=== PATIENT | male | born 1965 | race Caucasian/White ===

== ENCOUNTER → 2024-04-23 | Outpatient (CLI) | payer BC ==
[2024-04-23 14:41] VITALS: BP 157/93; PULSE 78; RESP 16; TEMP 98.3
--- NOTE | 2024-04-23 16:34 | P.SLEEP ---
History of Present Illness H&P Date: 04/23/24 This is a 58-year-old male patient referred to me for sleep apnea evaluation. The patient has very loud snoring. He is having difficulty sleeping next to his because of his loud snorer. He also prefers to watch television and uses it as a background noise to calm things down and promote sleep. His goes to bed early at around 9 PM. As such, he is currently sleeping in a separate bedroom. He feels that his sleep quality is poor. He goes to bed around 11 PM and gets out of bed at around 6 AM in the morning. Does not utilize an alarm. He maintains the same sleep schedule on weekends. He is averaging around 6 hours of sleep. He feels slightly sleepy during the day and his [place] score is at 9. He works for a [employer] and he drives back and forth between [place] and [place]. Does not fall asleep while driving. No history of any motor vehicle accidents because of feeling drowsy or sleepy. No history of smoking. He drinks beer occasionally more so on the weekends. His last alcoholic beverage that he consumes is around 9 PM. No history of head trauma. No history of substance abuse. He chews tobacco. His weight has remained stable over the years. No recent weight gain or weight loss. No issues with nocturia. Denies waking up choking or gasping for air. No restlessness in lower extremities. No nocturnal seizures. No nocturnal heartburn chest pain or palpitations. No sleepwalking or sleep talking. No difficulties with concentration and memory. His comorbid conditions include hypertension and hyperlipidemia. Review of Systems All systems: negative (14 point review of system was done. Of significance of the things mentioned above in the history of present illness.) Past Medical History Past Medical History: Hyperlipidemia, Hypertension History of Any Multi-Drug Resistant Organisms: None Reported Past Surgical History: Hernia Repair Past Anesthesia/Blood Transfusion Reactions: No Reported Reaction Past Psychological History: No Psychological Hx Reported Smoking Status: Former smoker Past Alcohol Use History: Occasional Past Drug Use History: None Reported Medications and Allergies Home Medications Medication Instructions Recorded Confirmed Type Amoxicillin 875 mg PO Q12HR 02/23/16 02/23/16 History Ibuprofen [Motrin] 400 - 600 mg PO Q6HR PRN 02/23/16 02/23/16 History Levofloxacin [Levaquin] 500 mg PO DAILY #10 tab 02/23/16 Rx Metoprolol Succinate (ER) [Toprol 50 mg PO DAILY 02/23/16 04/23/24 History XL] Quinapril HCl [Accupril] 40 mg PO DAILY 02/23/16 02/23/16 History Simvastatin [Zocor] 20 mg PO DAILY 02/23/16 04/23/24 History predniSONE [Deltasone] 20 mg PO BID #10 tab 02/23/16 Rx amLODIPine [Norvasc] 5 mg PO DAILY 04/23/24 04/23/24 History Allergies Allergy/AdvReac Type Severity Reaction Status Date / Time No Known Allergies Allergy Verified 02/23/16 11:18 Physical Exam Vitals: Vital Signs Temp Pulse Resp BP Pulse Ox 04/23/24 14:39 98.3 F 78 16 157/93 97 Intake and Output 04/23/24 04/23/24 04/23/24 06:59 14:59 22:59 Other: Weight 104.326 kg The patient appeared well nourished and normally developed. Vital signs as documented. Head exam is unremarkable. No scleral icterus or corneal arcus noted. Neck is without jugular venous distension, thyromegaly, or carotid bruits. The patient is a Mallampati class IV with significant crowding of the posterior pharynx. Carotid upstrokes are brisk bilaterally. Lungs are clear to auscultation and percussion. Cardiac exam reveals the PMI to be normally sized and situated. Rhythm is regular. First and second heart sounds normal. No murmurs, rubs or gallops. Abdominal exam reveals normal bowel sounds, no masses, no organomegaly and no aortic enlargement. Extremities are nonedematous and both femoral and pedal pulses are normal. Examination of the skin revealed no evidence of significant rashes, suspicious appearing nevi or other concerning lesions. Neurologically, the patient is awake and alert and the patient does not have any focal neurological deficit. Cranial nerves are essentially intact. Assessment and Plan Plan: Loud snoring with a poor sleep quality and daytime fatigue with limited sleepiness and [place] score of 9, rule out underlying obstructive sleep apnea. The patient is a Mallampati class IV. Obesity with a BMI of 34.9 Hypertension Hyperlipidemia Plan Encourage weight loss and avoid alcohol drinking at least 3 hours prior to going to bed. Maintain regular sleep schedule. Extend sleep hours and discussed with the patient principles of good sleep hygiene measures. Will proceed with screening for screening polysomnography looking for underlying sleep breathing disorder and treat the patient accordingly. Sleep Note - Sleep Data ESS Total: 9 - Sleep Note Sleep Note: Temperature: 98.3 F Pulse Rate: 78 Respiratory Rate: 16 Blood Pressure: 157/93 SpO2: 97 Height: 5 ft 8 in Weight: 104.326 kg BMI: Neck Circumference: 18.5
== END ==
LOC: 3 N SLEEP 14:09
PROVIDERS: ATTEND Internal Medicine Critical Care Medicine
DX: R06.83 Snoring (principal); R53.83 Other fatigue; G47.10 Hypersomnia, unspecified; E66.9 Obesity, unspecified; I10 Essential (primary) hypertension; E78.5 Hyperlipidemia, unspecified; Z68.34 Body mass index [BMI] 34.0-34.9, adult; Z79.899 Other long term (current) drug therapy; Z87.891 Personal history of nicotine dependence
CPT/HCPCS: 99211

== ENCOUNTER 2024-05-26 19:40 | Outpatient (CLI) | payer BC ==
--- NOTE | 2024-06-09 23:56 | P.PCN ---
Date of Procedure: 05/26/24 Operative Findings: Polysomnography report Date of service is 05/26/2024 Present history This is a 58-year-old male patient referred to me for sleep apnea evaluation. The patient has very loud snoring. He is having difficulty sleeping next to his because of his loud snorer. He also prefers to watch television and uses it as a background noise to calm things down and promote sleep. His goes to bed early at around 9 PM. As such, he is currently sleeping in a separate bedroom. He feels that his sleep quality is poor. He goes to bed around 11 PM and gets out of bed at around 6 AM in the morning. Does not utilize an alarm. He maintains the same sleep schedule on weekends. He is averaging around 6 hours of sleep. He feels slightly sleepy during the day and his [place] score is at 9. He works for a [employer] and he drives back and forth between [place] and [place]. Does not fall asleep while driving. No history of any motor vehicle accidents because of feeling drowsy or sleepy. No history of smoking. He drinks beer occasionally more so on the weekends. His last alcoholic beverage that he consumes is around 9 PM. No history of head trauma. No history of substance abuse. He chews tobacco. His weight has remained stable over the years. No recent weight gain or weight loss. No issues with nocturia. Denies waking up choking or gasping for air. No restlessness in lower extremities. No nocturnal seizures. No nocturnal heartburn chest pain or palpitations. No sleepwalking or sleep talking. No difficulties with concentration and memory. His comorbid conditions include hypertension and hyperlipidemia. Physical findings The patient's weight is 230 pounds with a BMI of 35 Technical description The patient was studied using a standard complex polysomnography protocol that included recording of the Lead II EKG, Central, occipital and frontal EEG, right and left outer canthus EOG, submental EMG, right and left anterior tibialis EMG, respiratory airflow by thermocouple and or pressure/flow transducer, respiratory efforts by abdominal and thoracic PVDF belts, oxygen saturation by cable oximetry. Position by observation synchronized the PSG. Equipment used: [employer]. Sleep architecture Total recording duration was 376 minutes and the total sleep time was 336.5 minutes and the overall sleep efficiency was 89.5%. The patient's sleep latency was 13.5 minutes. The patient's latency to REM sleep was 80.5 minutes. The sleep architecture was catheterized by 18.6% stage I, 59.3% stage II, 0% stage III, 22.1% REM sleep. The wake after sleep onset time was 25.5 minutes. The total arousal index was 11.9/h. Respiratory analysis The sleep study showed a total of 136 obstructive events of which 2 were obstructive apneas, 0 mixed apneas and 134 obstructive hypopneas and the resulting apnea-hypopnea index was 22.6 and the patient's disease was worse during REM sleep with a AHI during REM being at 32.2. Oxygenation analysis The baseline pulse ox was 96% while awake. Lowest oxygen saturation was 86% during sleep and the patient spent approximately 3 hours and 38 minutes of sleep time below pulse ox of 89% Sleep continuity summary The patient has encountered a total of 67 arousals with an index of 11.9. The respiratory arousal index was 3.6 Periodic movement events No significant periodic limb movement activity was identified Cardiac summary Average heart rate was 58 with a minimum heart rate of 55 and a maximum heart rate of 63 Assessment Obstructive sleep apnea, moderate in severity with an AHI of 22.6 Nocturnal oxygen desaturations with a minimum pulse ox of 86% Obesity with a BMI of 34.9 Hypertension Hyperlipidemia Loud snoring with a poor sleep quality and daytime fatigue with limited sleepiness and [place] score of 9. The patient is a Mallampati class IV. Obesity with a BMI of 34.9 Hypertension Hyperlipidemia Plan Symptomatic obstructive sleep apnea and the patient will be asked to come into the sleep center to undergo a CPAP titration. Encourage weight loss and avoid alcohol drinking at least 3 hours prior to going to bed. Maintain regular sleep schedule. Extend sleep hours and discussed with the patient principles of good sleep hygiene measures. Will continue to follow.
== END 2024-05-27 05:40 | disposition home or self-care (01) ==
LOC: 3 N SLEEP 19:40
PROVIDERS: ATTEND Internal Medicine Critical Care Medicine
DX: G47.33 Obstructive sleep apnea (adult) (pediatric) (principal); G47.36 Sleep related hypoventilation in conditions classified elsewhere; E66.9 Obesity, unspecified; I10 Essential (primary) hypertension; E78.5 Hyperlipidemia, unspecified; Z68.35 Body mass index [BMI] 35.0-35.9, adult; Z79.899 Other long term (current) drug therapy; Z87.891 Personal history of nicotine dependence
CPT/HCPCS: 95810

== ENCOUNTER 2024-07-21 19:53 | Outpatient (CLI) | payer BC ==
--- NOTE | 2024-07-25 13:10 | P.PCN ---
Date of Procedure: 07/21/24 Operative Findings: CPAP titration report Date of service is 07/21/2024 Pertinent history This is a 58-year-old male patient referred to me for sleep apnea evaluation. The patient has very loud snoring. He is having difficulty sleeping next to his because of his loud snorer. He also prefers to watch television and uses it as a background noise to calm things down and promote sleep. His goes to bed early at around 9 PM. As such, he is currently sleeping in a separate bedroom. He feels that his sleep quality is poor. He goes to bed around 11 PM and gets out of bed at around 6 AM in the morning. Does not utilize an alarm. He maintains the same sleep schedule on weekends. He is averaging around 6 hours of sleep. He feels slightly sleepy during the day and his [place] score is at 9. He works for a [employer] and he drives back and forth between [place] and [place]. Does not fall asleep while driving. No history of any motor vehicle accidents because of feeling drowsy or sleepy. No history of smoking. He drinks beer occasionally more so on the weekends. His last alcoholic beverage that he consumes is around 9 PM. No history of head trauma. No history of substance abuse. He chews tobacco. His weight has remained stable over the years. No recent weight gain or weight loss. No issues with nocturia. Denies waking up choking or gasping for air. No restlessness in lower extremities. No nocturnal seizures. No nocturnal heartburn chest pain or palpitations. No sleepwalking or sleep talking. No difficulties with concentration and memory. His comorbid conditions include hypertension and hyperlipidemia. The patient underwent a screening polysomnography on 05/26/2024 and the patient was found to have moderate to severe obstructive sleep apnea with an AHI of 22.6. The patient also encountered some nocturnal oxygen desaturation with a minimum pulse ox of 86%. The patient is a poor score is at 9. Comorbid conditions include hypertension, hyperlipidemia and obesity with a body mass index of 34.9. Based on that, the patient was asked to come into the sleep center to undergo a CPAP titration study. Physical findings Height is 5 feet and 8 inches with a weight of 230 pounds Technical description The patient was studied using a standard complex polysomnography protocol that included recording of the Lead II EKG, Central, occipital and frontal EEG, right and left outer canthus EOG, submental EMG, right and left anterior tibialis EMG, respiratory airflow by thermocouple and or pressure/flow transducer, respiratory efforts by abdominal and thoracic PVDF belts, oxygen saturation by cable oximetry. Position by observation synchronized the PSG. Equipment used: [employer]. Stepwise CPAP titration was done to eliminate all obstructive respiratory events. Sleep characteristics The total recording duration was 364.0 minutes. The total sleep time was 242.5 minutes. The wake after sleep onset time was 72.5 minutes. The overall sleep efficiency was 66.6%. The latency to sleep onset was 55 minutes. The sleep architecture was characterized by 10.1% stage I, 69.3% stage II, 0% stage III, and 27.4% REM sleep. The total arousal index was 5.4. CPAP titration summary The patient was started on CPAP therapy initially at a CPAP pressure of 4 cm of water and pressure was gradually increased by increments of 1 cm to reach a maximum CPAP pressure of 10 cm of water. This was successful titration. The patient was studied in various body position. The patient was studied in REM and non-REM sleep and the patient was studied in supine nonsupine body position. I carefully reviewed the CPAP titration and based on my review, CPAP pressure of 9 cm of water will be utilized to treat this patient obstructive sleep apnea. There was successful elimination of the obstructive respiratory events and the patient was able to maintain oxygen saturation above 90% throughout the titration Oxygenation analysis No significant oxygen desaturations were noted at various CPAP pressures. A target pressure of 9 cm of water, the patient's average pulse ox was 94% with a minimum pulse ox of 90% Cardiac summary The average heart rate was 59 with a minimum heart rate of 55 and a maximum heart of 64 Periodic limb movement summary No significant periodic movement activity was noted Sleep continuity summary The patient had a total of 18 arousals with an index of 4.5. Respiratory arousal index was 1.2 Assessment Obstructive sleep apnea, moderate severe with an AHI of 22.6 and the patient underwent a successful CPAP titration. Obesity with a BMI of 34.9 Loud snoring along with poor sleep quality and daytime fatigue and sleepiness with an [place] score of 9 Hypertension Hyperlipidemia Plan Initiate CPAP therapy on this patient at a pressure of 9 cm of water with a C- Flex of 3. The patient had a successful titration. The patient will be offered an AirFit F20 fullface mask, medium size. The patient will initiate CPAP therapy and the patient will see me back in follow-up in 30 to 90 days to assess clinical response and compliancy. Anticipate clinical improvement while being on CPAP therapy. Encourage weight loss with optimize sleep hygiene measures. Will continue to follow.
== END 2024-07-22 05:35 | disposition home or self-care (01) ==
LOC: 3 N SLEEP 19:53
PROVIDERS: ATTEND Internal Medicine Critical Care Medicine
CPT/HCPCS: 95811